=== PATIENT | female | born 1990 | race Caucasian/White ===

== ENCOUNTER 2020-04-26 15:53 | Emergency (ER) | payer OTHER ==
[~2020-04-26 15:53] MED LIST: ALLEGRA-D 24 H1 EACH PO; COLACE100 MG PO; CYCLOBENZAPRINE5 MG PO; EXCEDRIN MIGRA1 EACH PO; MEGA BIOTIN10000 MCG PO; MIRALAX 119 GR119 GM PO; ONE-DAILY MULT1 EACH PO; PHILLIPS' LAXA100 MG PO; PROBIOTIC1 EAC1 PO; PROCHLORPERAZINE5 MG PO
== END 2020-04-26 16:23 | disposition left against medical advice (07) ==
LOC: ER1 15:53
DX: U07.1 COVID-19 (principal); Z53.21 Procedure and treatment not carried out due to patient leaving prior to being seen by health care provider